=== PATIENT | female | born 1985 | race Caucasian/White ===

== ENCOUNTER 2023-07-05 07:36 | Emergency (ER) | payer OTHER ==
[~2023-07-05] VITALS: Ht 157.5 cm; Wt 90.9 kg
[2023-07-05] MEDS ORDERED: DEXAMETHASONE SOD PHOS 4 MG/ML 5 ML VIAL IVP ONE (07:45)
[2023-07-05] MEDS ORDERED: SODIUM CHLORIDE 0.9% 1,000 ML IV ONE (07:45)
[2023-07-05] MEDS ORDERED: DiphenhydrAMINE HCL 50 MG/ML VIAL IVP ONE (07:45)
[2023-07-05 07:46] VITALS: TEMP 97.9
[2023-07-05] MEDS ORDERED: DIPH25CA85 PO (12:43)
[2023-07-05] MEDS ORDERED: PRED-554 PO (12:46)
[2023-07-05 12:51] LABS: GLUCOMETER DEV NAME(LOC) ER.6; GLUCOSE,POINT OF CARE 236 MG/DL (70-110)
[2023-07-05 13:13] VITALS: BP 147/84; PULSE 82; RESP 16
== END 2023-07-05 13:14 | disposition home or self-care (01) ==
LOC: EMS 07:39
DX: T78.40XA Allergy, unspecified, initial encounter (principal); X58.XXXA Exposure to other specified factors, initial encounter
CPT/HCPCS: 99284; 96374; 96361; 96375; 82962; J1100; J1200